=== PATIENT | male | born 1970 | race African-American/Black ===

== ENCOUNTER 2017-12-30 15:53 | Emergency (ER) | payer BC, OTHER ==
[~2017-12-30] VITALS: Ht 190.5 cm; Wt 113.4 kg
[~2017-12-30 15:53] MED LIST: AMLODIPINE BESY10 MG PO; COZAAR 25 MG TA25 M1 PO; ZOFRAN ODT4 MG PO
[2017-12-30] MEDS ORDERED: NORCO 5-325 TA1 EACH PO (16:32)
[2017-12-30] MEDS ORDERED: LOSARTAN-HCTZ1 EAC2 PO (16:57)
[2017-12-30] MEDS ORDERED: PROTONIX40 M1 PO (16:57)
[2017-12-30 17:09] VITALS: BP 139/86
== END 2017-12-30 17:10 | disposition home or self-care (01) ==
LOC: ER 15:53
DX: S30.0XXA Contusion of lower back and pelvis, initial encounter (principal); S70.01XA Contusion of right hip, initial encounter; I10 Essential (primary) hypertension; M16.11 Unilateral primary osteoarthritis, right hip; W10.9XXA Fall (on) (from) unspecified stairs and steps, initial encounter; Y93.89 Activity, other specified; Y92.89 Other specified places as the place of occurrence of the external cause; Y99.8 Other external cause status

== ENCOUNTER 2021-11-09 03:23 | Emergency (ER) | payer OTHER ==
[~2021-11-09] VITALS: Ht 190.5 cm; Wt 116.6 kg
[~2021-11-09 03:23] MED LIST changes: +LOSARTAN-HCTZ1 EAC2 PO; +NORCO 5-325 TA1 EACH PO; +PROTONIX40 M1 PO
[2021-11-09 03:43] VITALS: BP 152/93
[2021-11-09] MEDS ORDERED: TRAMADOL 50 MG50 MG PO (08:32)
== END 2021-11-09 04:50 | disposition home or self-care (01) ==
LOC: ER 03:23
DX: S92.421A Displaced fracture of distal phalanx of right great toe, initial encounter for closed fracture (principal); M19.90 Unspecified osteoarthritis, unspecified site; I10 Essential (primary) hypertension; Z79.899 Other long term (current) drug therapy; X58.XXXA Exposure to other specified factors, initial encounter; Y93.89 Activity, other specified; Y92.89 Other specified places as the place of occurrence of the external cause; Y99.8 Other external cause status